=== PATIENT | female | born 1990 | race Caucasian/White ===

== ENCOUNTER 2023-07-28 19:29 | Emergency (ER) | payer OTHER ==
[2023-07-28] MEDS ORDERED: Ketorolac Tromethamine 30 MG (1 mL) VIAL ONE (20:26)
[2023-07-28] MEDS ORDERED: Metoclopramide 10 MG/10 ML UDCUP ONE (20:26)
[2023-07-28 20:58] LABS: SARS-CoV-2 NAA Rapid Test Not Detected (NotDetected)
== END 2023-07-28 21:10 | disposition home or self-care (01) ==
LOC: CSHERS 19:29
DX: J10.1 Influenza due to other identified influenza virus with other respiratory manifestations (principal); Z55.6 Problems related to health literacy
CPT/HCPCS: 96372; 99284; J1885